=== PATIENT | male | born 1975 | race Caucasian/White ===

== ENCOUNTER 2024-06-10 23:21 | Inpatient (IN) | payer MEDICAID ==
[~2024-06-10] VITALS: Ht 170.2 cm; Wt 82.1 kg
[2024-06-11] MEDS: ONDANSETRON HCL 4MG TABLET PO ONE (00:04)
[2024-06-11 00:16] LABS: HEMOGLOBIN. 12.1 g/dL (14.0-18.0); MEAN CORPUSCULAR HEMOGLOBIN 30.1 pg (28.0-32.0); MEAN CORPUSCULAR HGB CONC 33.6 g/dL (31.0-37.0); MEAN CORPUSCULAR VOLUME 89.9 fL (80.0-94.0); MEAN PLATELET VOLUME 8.4 fl (7.4-10.4); PLATELET 119 x1000/uL (130-400); RED BLOOD CELL COUNT 4.01 mill/uL (4.7-6.1); RED CELL DISTRIBUTION WIDTH 13.1 % (11.6-14.6); WHITE BLOOD COUNT 15.9 x1000/uL (4.5-11.0)
[2024-06-11 00:18] LABS: DIFFERENTIAL COMMENT 1
[2024-06-11 00:50] LABS: CHLORIDE 105 mEq/L (98-107); POTASSIUM 4.9 mEq/L (3.5-5.1); SODIUM 139 mEq/L (136-145)
[2024-06-11 00:52] LABS: CALCIUM 9.1 mg/dL (8.7-10.4); CARBON DIOXIDE 24 mEq/L (21-32)
[2024-06-11 00:57] LABS: CREATININE 1.4 mg/dL (0.6-1.3); GLUCOSE 188 mg/dL (70-105); UREA NITROGEN BLOOD 20 mg/dL (9-23)
[2024-06-11 00:59] LABS: ALANINE AMINOTRANSFERASE 63 IU/L (10-49); ALBUMIN 4.5 g/dL (3.2-4.8); ASPARTATE AMINOTRANSFERASE 61 IU/L (<34); BILIRUBIN DIRECT 0.3 mg/dL (<=3.0); BILIRUBIN TOTAL 1.2 mg/dL (0.1-1.0)
[2024-06-11 03:05] LABS: LACTIC ACID 2.9 mmol/L (0.4-2.0)
[2024-06-11] MEDS: CEFTRIAXONE 1GM/50ML 50 ML IV ONE (03:08)
[2024-06-11] MEDS: SODIUM CHLORIDE 0.9% 1,000 ML IV ONE (03:08)
[2024-06-11 04:31] LABS: PLATELET ESTIMATE NORMAL
[2024-06-11] MEDS: MORPHINE SULFATE 4 MG/ML INJ (FOR IV/IM USE) IV ONE (05:34)
[2024-06-11] MEDS: IOHEXOL-300 100 ML BOTTLE ONE (07:05)
[2024-06-11 10:41] VITALS: BP 137/86; PULSE 80; RESP 18; TEMP 37.9
[2024-06-11] MEDS ORDERED: NALOXONE HCL 0.4MG/ML VIAL IV PRN (11:00)
[2024-06-11 12:00] VITALS: BP 151/89; PULSE 87; RESP 18; TEMP 38; O2SAT 97
[2024-06-11 16:00] VITALS: BP 146/88; PULSE 91; RESP 18; TEMP 37.9; O2SAT 95
[2024-06-11] MEDS: HYDROCODONE/ACETAMINOPHEN 5/325MG TABLET PO PRN (17:08)
[2024-06-11 18:23] LABS: HEMATOCRIT 27.5 % (42.0-52.0); HEMOGLOBIN 9.3 g/dL (14.0-18.0)
[2024-06-11 20:00] VITALS: BP 144/91; PULSE 82; RESP 20; TEMP 36.3; O2SAT 96
[2024-06-11 21:34] LABS: CLARITY URINE CLEAR (CLEAR); COLOR URINE YELLOW (YELLOW); GLUCOSE URINE NEGATIVE (NEGATIVE); KETONES URINE NEGATIVE (NEGATIVE); LEUKOCYTE ESTERASE URINE NEGATIVE (NEGATIVE); NITRITE URINE NEGATIVE (NEGATIVE); OCCULT BLOOD URINE 1+ (NEGATIVE); PROTEIN URINE 2+ (NEGATIVE); SPECIFIC GRAVITY URINE 1.031 (1.005-1.030)
[2024-06-11 21:56] LABS: BACTERIA URINE TRACE; RBC URINE 0-2 /hpf (0-2); SQUAMOUS EPITHELIAL CELL URINE FEW /lpf (RARE/1+); WBC URINE NONE SEEN /hpf (0-2)
[2024-06-12] VITALS: BP 143/96; PULSE 89; RESP 20; TEMP 36.6; O2SAT 96
[2024-06-12] MEDS: CEFTRIAXONE 1GM/50ML 50 ML IV SCH (02:24)
[2024-06-12 04:00] VITALS: BP 143/92; PULSE 90; RESP 18; TEMP 36.7; O2SAT 95
[2024-06-12 06:50] LABS: CARBON DIOXIDE 26 mEq/L (21-32); CHLORIDE 106 mEq/L (98-107); POTASSIUM 4.7 mEq/L (3.5-5.1); SODIUM 139 mEq/L (136-145)
[2024-06-12 06:51] LABS: CALCIUM 8.7 mg/dL (8.7-10.4)
[2024-06-12 06:56] LABS: GLUCOSE 86 mg/dL (70-105); UREA NITROGEN BLOOD 15 mg/dL (9-23)
[2024-06-12 06:59] LABS: BASOPHILS % 0.7 % (0.0-2.0); EOSINOPHILS % 2.3 % (0.0-5.0); HEMOGLOBIN. 9.8 g/dL (14.0-18.0); LYMPHOCYTES % 10.5 % (20.0-50.0); MEAN CORPUSCULAR HEMOGLOBIN 30.1 pg (28.0-32.0); MEAN CORPUSCULAR HGB CONC 33.8 g/dL (31.0-37.0); MEAN PLATELET VOLUME 9.4 fl (7.4-10.4); MONOCYTES % 9.1 % (2.0-8.0); NEUTROPHILS % 77.4 % (40.0-76.0); PLATELET 122 x1000/uL (130-400); RED BLOOD CELL COUNT 3.25 mill/uL (4.7-6.1); RED CELL DISTRIBUTION WIDTH 13.3 % (11.6-14.6); WHITE BLOOD COUNT 10.6 x1000/uL (4.5-11.0)
[2024-06-12 08:00] VITALS: BP 144/96; PULSE 106; RESP 18; TEMP 36.8; O2SAT 95
[2024-06-12] MEDS: ONDANSETRON HCL 4MG/2ML INJ IV PRN (08:28)
[2024-06-12 12:00] VITALS: BP 140/93; PULSE 112; RESP 18; TEMP 39; O2SAT 96
[2024-06-12] MEDS: ACETAMINOPHEN 325MG TABLET PO PRN (12:47)
[2024-06-12 16:00] VITALS: BP 136/87; PULSE 114; RESP 17; TEMP 38; O2SAT 95
[2024-06-12 20:00] VITALS: BP 129/93; PULSE 108; RESP 18; TEMP 38.8; O2SAT 100
[2024-06-12] MEDS ORDERED: IOHEXOL-350 100 ML BOTTLE ONE (23:11)
[2024-06-13] VITALS: BP 133/90; PULSE 103; RESP 18; TEMP 38.6; O2SAT 96
[2024-06-13 04:00] VITALS: BP 133/91; PULSE 107; RESP 18; TEMP 39.3; O2SAT 95
[2024-06-13] MEDS: PIPERACILLIN/TAZO 3.375G/50ML 50 ML IV SCH (06:04)
[2024-06-13 06:50] LABS: CARBON DIOXIDE 27 mEq/L (21-32); CHLORIDE 104 mEq/L (98-107); POTASSIUM 4.6 mEq/L (3.5-5.1); SODIUM 138 mEq/L (136-145)
[2024-06-13 06:52] LABS: CALCIUM 8.6 mg/dL (8.7-10.4)
[2024-06-13 06:56] LABS: GLUCOSE 86 mg/dL (70-105); UREA NITROGEN BLOOD 12 mg/dL (9-23)
[2024-06-13 08:00] VITALS: BP 136/92; PULSE 106; RESP 20; TEMP 38.9; O2SAT 97
[2024-06-13 08:08] LABS: BASOPHILS % 0.4 % (0.0-2.0); EOSINOPHILS % 1.4 % (0.0-5.0); HEMATOCRIT. 27.8 % (42.0-52.0); HEMOGLOBIN. 9.1 g/dL (14.0-18.0); LYMPHOCYTES % 10.7 % (20.0-50.0); MEAN CORPUSCULAR HEMOGLOBIN 29.2 pg (28.0-32.0); MEAN CORPUSCULAR HGB CONC 32.7 g/dL (31.0-37.0); MEAN CORPUSCULAR VOLUME 89.5 fL (80.0-94.0); NEUTROPHILS % 77.5 % (40.0-76.0); PLATELET 153 x1000/uL (130-400); RED CELL DISTRIBUTION WIDTH 13.1 % (11.6-14.6); WHITE BLOOD COUNT 12.5 x1000/uL (4.5-11.0)
[2024-06-13 12:00] VITALS: BP 142/85; PULSE 104; RESP 20; TEMP 38.9; O2SAT 99
[2024-06-13 16:00] VITALS: BP 146/90; PULSE 103; RESP 20; TEMP 36.4; O2SAT 98
[2024-06-13 16:51] LABS: INR 1.1; PROTHROMBIN TIME 12.2 sec (9.6-11.0)
[2024-06-13 20:00] VITALS: BP 132/85; PULSE 105; RESP 22; TEMP 38.9; O2SAT 95
[2024-06-14] VITALS (7 sets, daily range): BP systolic 127–148; BP diastolic 81–93; PULSE 95–107; RESP 18–25; TEMP 37.1–40; O2SAT 94–97
[2024-06-14 07:34] LABS: CARBON DIOXIDE 26 mEq/L (21-32); CHLORIDE 105 mEq/L (98-107); POTASSIUM 4.1 mEq/L (3.5-5.1); SODIUM 138 mEq/L (136-145)
[2024-06-14 07:35] LABS: CALCIUM 8.5 mg/dL (8.7-10.4)
[2024-06-14 07:39] LABS: BASOPHILS % 0.4 % (0.0-2.0); EOSINOPHILS % 1.1 % (0.0-5.0); HEMATOCRIT. 24.8 % (42.0-52.0); HEMOGLOBIN. 8.5 g/dL (14.0-18.0); LYMPHOCYTES % 8.6 % (20.0-50.0); MEAN CORPUSCULAR HEMOGLOBIN 30.2 pg (28.0-32.0); MEAN CORPUSCULAR HGB CONC 34.1 g/dL (31.0-37.0); MEAN CORPUSCULAR VOLUME 88.6 fL (80.0-94.0); MEAN PLATELET VOLUME 8.5 fl (7.4-10.4); MONOCYTES % 9.8 % (2.0-8.0); NEUTROPHILS % 80.1 % (40.0-76.0); PLATELET 196 x1000/uL (130-400); WHITE BLOOD COUNT 16.4 x1000/uL (4.5-11.0)
[2024-06-14 07:40] LABS: GLUCOSE 87 mg/dL (70-105); UREA NITROGEN BLOOD 11 mg/dL (9-23)
[2024-06-15] VITALS (21 sets, daily range): BP systolic 120–149; BP diastolic 69–88; PULSE 97–114; RESP 13–26; TEMP 38.3–39; O2SAT 94–99
[2024-06-15 07:33] LABS: CHLORIDE 104 mEq/L (98-107); SODIUM 138 mEq/L (136-145)
[2024-06-15 07:34] LABS: CALCIUM 8.7 mg/dL (8.7-10.4); CARBON DIOXIDE 26 mEq/L (21-32)
[2024-06-15 07:39] LABS: GLUCOSE 95 mg/dL (70-105); UREA NITROGEN BLOOD 13 mg/dL (9-23)
[2024-06-15] MEDS ORDERED: LIDOCAINE HCL 1% 10 MG/ML 10ML VIAL ONE (07:58)
[2024-06-15] MEDS ORDERED: IOHEXOL-350 100 ML BOTTLE ONE ×2 (08:00→09:50)
[2024-06-15] MEDS ORDERED: IOHEXOL-300 100 ML BOTTLE ONE (08:20)
[2024-06-15 08:31] LABS: BASOPHILS % 0.6 % (0.0-2.0); EOSINOPHILS % 2.1 % (0.0-5.0); HEMATOCRIT. 24.5 % (42.0-52.0); HEMOGLOBIN. 8.2 g/dL (14.0-18.0); LYMPHOCYTES % 8.3 % (20.0-50.0); MEAN CORPUSCULAR HGB CONC 33.5 g/dL (31.0-37.0); MEAN CORPUSCULAR VOLUME 89.4 fL (80.0-94.0); MEAN PLATELET VOLUME 8.2 fl (7.4-10.4); MONOCYTES % 9.4 % (2.0-8.0); NEUTROPHILS % 79.6 % (40.0-76.0); PLATELET 287 x1000/uL (130-400); RED BLOOD CELL COUNT 2.74 mill/uL (4.7-6.1); RED CELL DISTRIBUTION WIDTH 12.9 % (11.6-14.6); WHITE BLOOD COUNT 14.9 x1000/uL (4.5-11.0)
[2024-06-15] MEDS ORDERED: FENTANYL CITRATE/PF 50MCG/ML 2ML VIAL ONE (08:55)
[2024-06-15] MEDS: FENTANYL CITRATE/PF 50MCG/ML 2ML VIAL IV ONE (09:00)
[2024-06-16] VITALS: BP 131/79; PULSE 103; RESP 20; TEMP 37; O2SAT 98
[2024-06-16 04:00] VITALS: BP 124/69; PULSE 90; RESP 20; TEMP 37.7; O2SAT 98
[2024-06-16 08:00] VITALS: BP 120/61; PULSE 90; RESP 19; TEMP 37.7; O2SAT 99
[2024-06-16 12:00] VITALS: BP 116/64; PULSE 62; RESP 19; TEMP 37.6; O2SAT 99
[2024-06-16 16:00] VITALS: BP 118/69; PULSE 78; RESP 20; TEMP 37.8; O2SAT 99
[2024-06-16 20:00] VITALS: BP 119/75; PULSE 101; RESP 20; TEMP 37.7; O2SAT 98
[2024-06-17] VITALS (8 sets, daily range): BP systolic 112–124; BP diastolic 66–77; PULSE 92–97; RESP 15–20; TEMP 35.7–37.7; O2SAT 95–98
[2024-06-17 06:44] LABS: CHLORIDE 106 mEq/L (98-107); POTASSIUM 4.2 mEq/L (3.5-5.1); SODIUM 139 mEq/L (136-145)
[2024-06-17 06:45] LABS: CALCIUM 8.9 mg/dL (8.7-10.4); CARBON DIOXIDE 24 mEq/L (21-32)
[2024-06-17 06:50] LABS: CREATININE 0.9 mg/dL (0.6-1.3); GLUCOSE 89 mg/dL (70-105); UREA NITROGEN BLOOD 12 mg/dL (9-23)
[2024-06-17 06:53] LABS: BASOPHILS % 0.6 % (0.0-2.0); EOSINOPHILS % 2.7 % (0.0-5.0); HEMATOCRIT. 23.8 % (42.0-52.0); HEMOGLOBIN. 8.1 g/dL (14.0-18.0); LYMPHOCYTES % 9.2 % (20.0-50.0); MEAN CORPUSCULAR HEMOGLOBIN 30.1 pg (28.0-32.0); MEAN CORPUSCULAR HGB CONC 33.9 g/dL (31.0-37.0); MEAN CORPUSCULAR VOLUME 88.5 fL (80.0-94.0); MONOCYTES % 10.9 % (2.0-8.0); NEUTROPHILS % 76.6 % (40.0-76.0); PLATELET 497 x1000/uL (130-400); RED BLOOD CELL COUNT 2.69 mill/uL (4.7-6.1); RED CELL DISTRIBUTION WIDTH 13.3 % (11.6-14.6); WHITE BLOOD COUNT 14.4 x1000/uL (4.5-11.0)
== END 2024-06-17 21:51 | disposition home or self-care (01) | DRG 710 ==
LOC: ER 23:21 → EDBD 23:21 → EDBEDREQTM 06-11 03:02 → EDBEDREQ 06-11 03:02 → EDBEDREQSVC 06-11 05:20 → EDBEDREQTM 06-11 05:20 → 8WST 06-11 05:21
PROVIDERS: ADMIT Internal Medicine; ATTEND Internal Medicine
PROC: B4101ZZ Fluoroscopy of Abdominal Aorta using Low Osmolar Contrast (ICD-10-PCS; principal; 2024-06-15)
PROC: 04L93DZ Occlusion of Right Renal Artery with Intraluminal Device, Percutaneous Approach (ICD-10-PCS; 2024-06-15)
PROC: B4161ZZ Fluoroscopy of Right Renal Artery using Low Osmolar Contrast (ICD-10-PCS; 2024-06-15)
DX: A41.9 Sepsis, unspecified organism (principal); N17.0 Acute kidney failure with tubular necrosis; E87.20 Acidosis, unspecified; K52.9 Noninfective gastroenteritis and colitis, unspecified; N28.89 Other specified disorders of kidney and ureter; Z20.822 Contact with and (suspected) exposure to COVID-19; D64.9 Anemia, unspecified; I10 Essential (primary) hypertension; S37.011A Minor contusion of right kidney, initial encounter; X58.XXXA Exposure to other specified factors, initial encounter; Y93.89 Activity, other specified; Y92.89 Other specified places as the place of occurrence of the external cause; Y99.8 Other external cause status
CPT/HCPCS: 36415; 74174; 74176; 74177; 75726; 75774; 75898; 80048; 80076; 81003; 83605; 84145; 85014; 85018; 85025; 87426; 87804; 93005; 99285; A4663; C1757; C1760; C1766; C1769; J0696; J1644; J2003; J2270; J2405; J2543; J3010; J7030; Q0162; Q9967